=== PATIENT | male | born 1965 ===

== ENCOUNTER → 2022-05-27 | Outpatient (CLI) | payer MEDICARE, OTHER | LOC: LAB SHORT 11:30 → LAB 11:30 | DX: I87.2 Venous insufficiency (chronic) (peripheral) (principal); L97.829 Non-pressure chronic ulcer of other part of left lower leg with unspecified severity; L97.819 Non-pressure chronic ulcer of other part of right lower leg with unspecified severity; B35.0 Tinea barbae and tinea capitis; L82.0 Inflamed seborrheic keratosis; L29.8 Other pruritus; L53.8 Other specified erythematous conditions; L81.8 Other specified disorders of pigmentation; R60.0 Localized edema; D22.5 Melanocytic nevi of trunk; D22.72 Melanocytic nevi of left lower limb, including hip; L82.1 Other seborrheic keratosis; L57.8 Other skin changes due to chronic exposure to nonionizing radiation | CPT/HCPCS: 87070; 87077; 87147; 87186; 87205 ==